=== PATIENT | female | born 2000 | race Caucasian/White ===

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

== ENCOUNTER 2022-10-27 13:47 | Emergency (ER) | payer OTHER ==
[2022-10-27 15:01] VITALS: BP 105/66; PULSE 132; RESP 18; TEMP 100.6; BMI 23.8
[2022-10-27] MEDS ORDERED: IBUPROFEN 600 MG TABLET (FP) PO ONE ×2 (15:38→15:39)
[2022-10-27] MEDS ORDERED: ONDANSETRON *ODT* 4 MG TABLET SL ONE (15:49)
[2022-10-27] MEDS ORDERED: ONDANSETRON *ODT* 4 MG TABLET ONE (15:51)
== END 2022-10-27 16:26 | disposition home or self-care (01) ==
LOC: JER 13:47
DX: J09.X2 Influenza due to identified novel influenza A virus with other respiratory manifestations (principal); R50.9 Fever, unspecified; R05.1 Acute cough; J02.9 Acute pharyngitis, unspecified
CPT/HCPCS: 0241U-QW; 99283-25; Q0162

== ENCOUNTER 2024-07-18 06:30 | Emergency (ER) | payer OTHER ==
[2024-07-18 06:37] VITALS: BP 99/65; PULSE 62; RESP 20; TEMP 98.3; BMI 23.6
[2024-07-18] MEDS: IBUPROFEN 400 MG TABLET (FP) PO ONE (08:30)
[2024-07-18] MEDS ORDERED: IBUPROFEN 400 MG TABLET (FP) PO ONE (08:31)
== END 2024-07-18 09:45 | disposition home or self-care (01) ==
LOC: JER 06:30
DX: S40.011A Contusion of right shoulder, initial encounter (principal); S50.11XA Contusion of right forearm, initial encounter; S70.11XA Contusion of right thigh, initial encounter; S80.11XA Contusion of right lower leg, initial encounter; V43.62XA Car passenger injured in collision with other type car in traffic accident, initial encounter; Y92.410 Unspecified street and highway as the place of occurrence of the external cause
CPT/HCPCS: 73030-TC-RT-FY; 99283-25